=== PATIENT | male | born 1965 | race Caucasian/White ===

== ENCOUNTER 2018-10-31 15:41 | Emergency (ER) | payer MEDICAID ==
[~2018-10-31] VITALS: Ht 172.7 cm; Wt 72.6 kg
[2018-10-31 16:22] VITALS: Ht 172.7 cm; Wt 72.6 kg
[2018-10-31 17:51] LABS: BASOPHIL % 0.5 % (0-2); PLATELET COUNT 300 x10^3mcL (130-400)
[2018-10-31 17:58] LABS: CARBON DIOXIDE 28.9 mmol/L (21-32); CHLORIDE SERUM 105 mmol/L (98-107); CREATININE SERUM 0.9 mg/dL (0.7-1.3); GFR1 > 60 mL/min; GLUCOSE SERUM 89 mg/dL (74-106); POTASSIUM SERUM 4.4 mmol/L (3.5-5.1); RED CELL DISTRIBUTION WIDTH 14.9 % (11.5-14.5); SODIUM SERUM 142 mmol/L (136-145)
[2018-10-31 18:02] LABS: ALBUMIN 3.9 g/dL (3.4-5.0); ALKALINE PHOSPHATASE 132 U/L (46-116); ALT/SGPT 26 U/L (16-63); AST/SGOT 24 U/L (15-37); BILIRUBIN TOTAL 0.3 mg/dL (0.20-1.00); LIPASE 138 IU/L (73-393); TOTAL PROTEIN, SERUM 7.8 g/dL (6.4-8.2)
[2018-10-31 19:11] VITALS: BP 147/78
== END 2018-10-31 20:07 | disposition home or self-care (01) ==
LOC: ED 15:41
PROVIDERS: Emergency Medicine
DX: K43.9 Ventral hernia without obstruction or gangrene (principal); K59.00 Constipation, unspecified
CPT/HCPCS: J1885; J2270; J2405; J7030